=== PATIENT | female | born 1960 | race Caucasian/White ===

== ENCOUNTER 2021-11-09 19:46 | Emergency (ER) | payer BC ==
[~2021-11-09] VITALS: Ht 180.3 cm; Wt 120.2 kg
[2021-11-09 20:50] LABS: ALBUMIN 3.9 g/dL (3.5-5.0); ANION GAP 15.3 mmol/L (8-16); CALCIUM 9.9 mg/dL (8.4-10.2); CREATININE, SERUM 0.91 mg/dL (0.57-1.11); POTASSIUM 4.3 mmol/L (3.5-5.1)
[2021-11-09 20:55] LABS: CREATINE KINASE MB 1.2 ng/mL (0-5.0)
[2021-11-09 21:05] LABS: BASOPHILS % 0.5 % (0.0-1.0); EOSINOPHILS # (AUTO) 0.1 (0.0-0.4); EOSINOPHILS % 1.2 % (0.0-6.0); HEMATOCRIT 39.6 % (34.2-44.1); HEMOGLOBIN 12.9 g/dL (12.0-16.0); LYMPHOCYTES # (AUTO) 1.8 (1.0-3.2); LYMPHOCYTES % 29.2 % (18.0-39.1); MEAN CORPUSCULAR HEMOGLOBIN 30.5 pg (28-32); MEAN CORPUSCULAR HGB CONC 32.6 g/dL (31-35); MEAN CORPUSCULAR VOLUME 93.6 fL (81-99); MONOCYTES # (AUTO) 0.6 (0.2-0.8); MONOCYTES % 10.5 % (4.4-11.3); NEUTROPHILS # (AUTO) 3.5 (2.1-6.9); NEUTROPHILS % 58.3 % (38.7-80.0); PLATELET COUNT 198 x10e3/uL (140-360); RED BLOOD COUNT 4.23 x10e6/uL (3.6-5.1); RED CELL DISTRIBUTION WIDTH 13.2 % (11.7-14.4)
[2021-11-09 21:47] VITALS: BP 145/60
== END 2021-11-09 21:52 | disposition home or self-care (01) ==
LOC: ER 20:10
DX: M25.512 Pain in left shoulder (principal); I10 Essential (primary) hypertension; I50.9 Heart failure, unspecified; F41.9 Anxiety disorder, unspecified; R94.31 Abnormal electrocardiogram [ECG] [EKG]
CPT/HCPCS: 36415; 80053; 82550; 82553; 84484; 85025; 93005; 99283